=== PATIENT | female | born 1930 | race Asian ===

== ENCOUNTER 2019-10-26 17:22 | Inpatient (IN) | payer MEDICARE, MEDICAID, OTHER ==
[~2019-10-26] VITALS: Ht 160 cm; Wt 55.8 kg
[2019-10-26 19:06] LABS: BASOPHILS % 0.9 % (0.0-2.0); HEMATOCRIT. 33.9 % (36.0-48.0); HEMOGLOBIN. 11.3 g/dL (12.0-16.0); LYMPHOCYTES % 22.5 % (20.0-50.0); MEAN CORPUSCULAR HEMOGLOBIN 30.9 pg (28.0-32.0); MEAN CORPUSCULAR VOLUME 92.6 fL (81.0-99.0); MEAN PLATELET VOLUME 7.8 fl (7.4-10.4); MONOCYTES % 10.2 % (2.0-8.0); NEUTROPHILS % 52.4 % (40.0-76.0); PLATELET 253 x1000/uL (130-400); RED BLOOD CELL COUNT 3.67 mill/uL (4.2-5.4); RED CELL DISTRIBUTION WIDTH 14.9 % (11.6-14.6)
[2019-10-26 19:15] LABS: CHLORIDE 108 mEq/L (98-107)
[2019-10-26] MEDS ORDERED: SODIUM CHLORIDE 0.9% 1,000 ML IV ONE (22:37)
[2019-10-26 22:44] LABS: CLARITY URINE CLEAR (CLEAR); COLOR URINE YELLOW (YELLOW); KETONES URINE NEGATIVE (NEGATIVE); LEUKOCYTE ESTERASE URINE 1+ (NEGATIVE); NITRITE URINE NEGATIVE (NEGATIVE); OCCULT BLOOD URINE NEGATIVE (NEGATIVE); PROTEIN URINE NEGATIVE (NEGATIVE); SPECIFIC GRAVITY URINE 1.016 (1.005-1.030); UROBILINOGEN URINE 0.2 E.U./dL (0.2-1.0)
[2019-10-27] MEDS ORDERED: LORAZEPAM 2MG/ML CPJ IM ONE (00:15)
[2019-10-27] MEDS ORDERED: CEFTRIAXONE 1 G PREMIX 50 ML IV ONE (00:45)
[2019-10-27 03:35] VITALS: BP 141/54
[2019-10-27 04:00] VITALS: BP 141/54
[2019-10-27] MEDS ORDERED: PRAV10TA35 PO (04:15)
[2019-10-27] MEDS ORDERED: ACET160S2 PO (04:15)
[2019-10-27] MEDS ORDERED: ALBU6.7H9 INH (04:15)
[2019-10-27] MEDS ORDERED: MULT-379 * (04:15)
[2019-10-27] MEDS ORDERED: VERA120C10 PO (04:15)
[2019-10-27] MEDS ORDERED: PROT40 PO (04:15)
[2019-10-27] MEDS ORDERED: DONE5TAB26 PO (04:15)
[2019-10-27] MEDS ORDERED: DEXTL PO (04:15)
[2019-10-27] MEDS: DEXT 5%/0.45% NACL 1000ML 1,000 ML IV SCH ×2 (06:14→18:15)
[2019-10-27] MEDS: ALBUTEROL (0.083%) 2.5MG/3ML NEB HHN SCH ×5 (07:25→20:05)
[2019-10-27] MEDS ORDERED: DOCUSATE SODIUM 250MG CAPSULE PO NR (10:00)
[2019-10-27] MEDS: DONEPEZIL HCL 5MG TABLET PO SCH (11:18)
[2019-10-27] MEDS: PANTOPRAZOLE 40MG DR TABLET PO SCH (11:19)
[2019-10-27] MEDS: LEVOTHYROXINE SODIUM 50MCG TABLET PO SCH (11:19)
[2019-10-27] MEDS: VERAPAMIL HCL 80 MG TABLET PO SCH ×2 (11:19→12:50)
[2019-10-27 12:00] VITALS: BP 166/74
[2019-10-27 20:00] VITALS: BP 195/81
[2019-10-27 22:00] VITALS: BP 159/60
[2019-10-28] VITALS: BP 166/75
[2019-10-28] MEDS: ALBUTEROL (0.083%) 2.5MG/3ML NEB HHN SCH ×4 (02:19→20:12)
[2019-10-28] MEDS: ATORVASTATIN CALCIUM 10MG TABLET PO SCH ×2 (02:46→21:00)
[2019-10-28] MEDS: VERAPAMIL HCL 80 MG TABLET PO SCH ×4 (02:47→22:00)
[2019-10-28 04:00] VITALS: BP 149/62
[2019-10-28] MEDS: PANTOPRAZOLE 40MG DR TABLET PO SCH (05:41)
[2019-10-28] MEDS: LEVOTHYROXINE SODIUM 50MCG TABLET PO SCH (05:41)
[2019-10-28 08:00] VITALS: BP 152/50
[2019-10-28] MEDS: DEXT 5%/0.45% NACL 1000ML 1,000 ML IV SCH ×2 (08:10→21:30)
[2019-10-28] MEDS: DONEPEZIL HCL 5MG TABLET PO SCH (09:00)
[2019-10-28 17:17] LABS: BASOPHILS % 0.4 % (0.0-2.0); EOSINOPHILS % 2.2 % (0.0-5.0); HEMATOCRIT. 35.8 % (36.0-48.0); HEMOGLOBIN. 11.9 g/dL (12.0-16.0); LYMPHOCYTES % 15.5 % (20.0-50.0); MEAN CORPUSCULAR HEMOGLOBIN 30.8 pg (28.0-32.0); MEAN CORPUSCULAR VOLUME 93.1 fL (81.0-99.0); MEAN PLATELET VOLUME 8.2 fl (7.4-10.4); MONOCYTES % 8.8 % (2.0-8.0); NEUTROPHILS % 73.1 % (40.0-76.0); PLATELET 237 x1000/uL (130-400); RED BLOOD CELL COUNT 3.85 mill/uL (4.2-5.4); RED CELL DISTRIBUTION WIDTH 14.8 % (11.6-14.6)
[2019-10-28 20:00] VITALS: BP 132/63
[2019-10-29] VITALS: BP 148/76
[2019-10-29] MEDS: ALBUTEROL (0.083%) 2.5MG/3ML NEB HHN SCH (01:45)
[2019-10-29 04:00] VITALS: BP 173/68
[2019-10-29] MEDS: LEVOTHYROXINE SODIUM 50MCG TABLET PO SCH (06:02)
[2019-10-29] MEDS: VERAPAMIL HCL 80 MG TABLET PO SCH (06:02)
[2019-10-29 08:00] VITALS: BP 112/52
[2019-10-29] MEDS: DONEPEZIL HCL 5MG TABLET PO SCH (09:00)
[2019-10-29] MEDS ORDERED: FAMOTIDINE 20MG TABLET PO SCH (09:00)
[2019-10-29] MEDS: DEXT 5%/0.45% NACL 1000ML 1,000 ML IV SCH (10:50)
== END 2019-10-29 12:26 | DRG 71 ==
LOC: ER 17:22 → 8WST 10-27 01:24 → EDBEDREQTM 10-27 01:27 → EDBEDREQDT 10-27 01:27 → EDBEDREQ 10-27 01:27 → CANRESERV 10-27 02:12 → ENRESERV 10-27 02:12 → 8WST 10-27 04:07 → 6WST 10-27 16:55
PROVIDERS: ADMIT Internal Medicine; ATTEND Internal Medicine
DX: G93.41 Metabolic encephalopathy (principal); R64 Cachexia; D64.9 Anemia, unspecified; E03.9 Hypothyroidism, unspecified; F02.80 Dementia in other diseases classified elsewhere, unspecified severity, without behavioral disturbance, psychotic disturbance, mood disturbance, and anxiety; G30.9 Alzheimer's disease, unspecified; I12.9 Hypertensive chronic kidney disease with stage 1 through stage 4 chronic kidney disease, or unspecified chronic kidney disease; G89.29 Other chronic pain; N18.9 Chronic kidney disease, unspecified; R62.7 Adult failure to thrive; M54.5 Low back pain; Z87.11 Personal history of peptic ulcer disease; Z78.1 Physical restraint status; Z79.899 Other long term (current) drug therapy; Z68.21 Body mass index [BMI] 21.0-21.9, adult; Z87.81 Personal history of (healed) traumatic fracture
CPT/HCPCS: 36415; 71045; 73552; 80048; 80053; 81003; 82962; 83605; 83880; 84439; 84443; 84484; 85025; 92610; 93005; 94640; 97162; 99285; J0696; J2060; J7030